=== PATIENT | female | born 1980 | race Hispanic/Latino ===

== ENCOUNTER → 2017-06-22 | Day surgery (SDC) | payer OTHER ==
--- NOTE | 2017-06-20 19:59 | History & Physical Pre-Op ---
General Information and HPI History of Present Illness: Danelle is a 46-year-old female with a long-standing and worsening complaint of chronic ingrown nails to the left and right great toes. The patient has undergone multiple in office procedures, with however unfortunate recurrences. Patient presents today for preoperative surgical consultation. Allergies/Medications Allergies: Coded Allergies: morphine (SWELLING 06/18/17) Home Med list Insulin Glargine,Hum.rec.anlog (Lantus Solostar) 100 UNIT/ML (3 ML) INSULN.PEN 20 UNITS SC TID DM (Reported) Past History Medical History Endocrine: diabetes Surgical History Pertinent Surgical History: Review of Systems Review of Systems: Unremarkable except for that noted tissue present illness Exam & Diagnostic Data Physical Exam: Lungs clear bilaterally. Heart sounds rate regular. Lower extremity physical exam demonstrates intact pedal pulses bilaterally. Pulses dorsalis pedis and posterior tibial arteries are palpable bilaterally. Patient without any sensory motor deficits. Deep tendon reflexes grossly intact. Patient noted estimated pain with palpation to the medial borders of the left and right great toes. Assessment/Plan Assessment/Plan: Onychocryptosis left and right great toes. A lengthy discussion reviewing both surgical and conservative options was held the patient at bedside and the patient elects to go forward surgery despite the risks. As Ranked By This Provider Problem List: 1. Ingrowing nail Attending MD Review Statement Attending Statement Attending MD Statement: examined this patient
[~2017-06-22] VITALS: Ht 152.4 cm; Wt 81.6 kg
[~2017-06-22] MED LIST: LANTUS SOL100 UNIT/1 SC
--- NOTE | 2017-06-22 18:16 | Operative Report ---
Operative/Inv Procedure Report Surgery Date: 06/22/17 Name of Procedure: 1 cold steel procedure right first toe 2 cold steel procedure left first toe 3 flap closure of open surgical wound right 4 flap closure of open surgical wound left Pre-Operative Diagnosis: 1 onychocryptosis right great toe 2 onychocryptosis left great toe Post-Operative Diagnosis: The same Estimated Blood Loss: scant Surgeon/Organisational Psychologist: Issa Leung DPM Anesthesia: moderate sedation, block Operative/Procedure Note Note: After obtaining informed consent the patient was brought to the operating room and placed on the operating table in the supine position. The patient isn't securely fastened to the operating table utilizing safety belt. After administration of IV sedation, 10 mL of 0.5% Marcaine plain was infiltrated about the patient's left and right ankles. 2 g of Ancef were delivered intravenously times one dose partial, temporary nail avulsions were performed at the medial borders of the left and right great toes. The left and right feet were then scrubbed prepped and draped in usual aseptic manner. An was drain was utilized to achieve hemostasis and the right first MPJ. A Francisco type procedure was then utilized to resect the matrix cells any remaining matrix cells were curetted. The wound was irrigated with normal sterile saline. A flap was developed with undermining, release of the morning ligaments and rotation superiorly of the tissues which were held centrally with 4-0 Vicryl. Skin edges reapproximated 4-0 nylon. Incision was then dressed with Xeroform 4 x 4's Kerlix and Coban. The Raymond drain was then released. A Michelle drain was then placed about the left first metatarsophalangeal joint. A Francisco type procedure was utilized to remove the matrix cells were curetted as well. The wound was irrigated with normal sterile saline. A flap was then developed with undermining, release of the morning ligaments and superior rotation of the tissue centrally. Central of the flap was held with 4-0 Vicryl and the skin is reprepped for nylon. Incision was dressed with Xeroform 4 x 4's Celia and Coban. The patient noted tolerate both procedure and anesthesia well and the patient was transported from the operating room to recovery with vital signs stable best assess intact to both the left and right flaps.
== END ==
LOC: STS 03:06
DX: L60.0 Ingrowing nail (principal); E11.9 Type 2 diabetes mellitus without complications; Z79.4 Long term (current) use of insulin
CPT/HCPCS: 81025; J0690; J1885; J2001; J2250; J3490